=== PATIENT | male | born 1955 | race Caucasian/White ===

== ENCOUNTER 2016-11-09 16:51 | Emergency (ER) | payer OTHER, BC ==
[~2016-11-09] VITALS: Ht 167.6 cm; Wt 115.2 kg
[2016-11-09] MEDS ORDERED: LISINOPRIL20 MG PO (17:03)
[2016-11-09 17:59] LABS: ADD MIUA? NO; BILIRUBIN NEGATIVE; BLOOD NEGATIVE; COLOR YELLOW ((YELLOW)); GLUCOSE (STRIP) NEGATIVE; KETONES NEGATIVE; LEUKOCYTES NEGATIVE; NITRITE NEGATIVE; PROTEIN (STRIP) NEGATIVE; SPECIFIC GRAVITY 1.012 (1.000-1.030); UCUL ADDED? NO; UROBILINOGEN 0.2 MG/DL (0.2-1.0)
[2016-11-09] MEDS ORDERED: VALIUM5 MG PO (19:23)
[2016-11-09] MEDS ORDERED: PERCOCET 5/31 TABLET PO (19:23)
[2016-11-09] MEDS ORDERED: MEDROL DOSEPAK4 MG PO (19:23)
[2016-11-09 19:34] VITALS: BP 142/80
== END 2016-11-09 19:37 | disposition home or self-care (01) ==
LOC: EME 16:51
PROVIDERS: Physician Assistant
DX: M54.42 Lumbago with sciatica, left side (principal); I10 Essential (primary) hypertension
CPT/HCPCS: 81003; 99281; 99284; J2930; J3010

== ENCOUNTER 2016-11-11 00:08 | Inpatient (IN) | payer OTHER, BC ==
[~2016-11-11] VITALS: Ht 175.3 cm; Wt 113.7 kg
[~2016-11-11 00:08] MED LIST: LISINOPRIL20 MG PO; MEDROL DOSEPAK4 MG PO; PERCOCET 5/31 TABLET PO; VALIUM5 MG PO
[2016-11-11 01:08] LABS: HEMATOCRIT 41.6 % (38.0-50.0); MCH 30.2 PG (29.0-34.0); MCHC 34.1 G/DL (30.0-36.0); MCV 88.5 FL (86-99); MEAN PLAT.VOLUME 8.9 uM^3 (9.0-12.4); PLATELET COUNT 185 K/uL (156-360); RBC DIS.WIDTH-CV 12.2 % (11.8-14.6); RBC DIS.WIDTH-SD 39.6 % (39-53); WHITE BLOOD COUNT 11.2 K/uL (4.1-10.2)
[2016-11-11 01:19] LABS: CHLORIDE 103 mEq/L (99-109); POTASSIUM 4.6 mEq/L (3.7-5.4); SODIUM 138 mEq/L (136-147)
[2016-11-11 01:21] LABS: GLUCOSE 127 mg/dL (70-99)
[2016-11-11 01:23] LABS: ANION GAP 9 MEQ/L (2-14); TOTAL BILIRUBIN 0.7 mg/dL (0.0-1.0)
[2016-11-11 01:25] LABS: ALKALINE PHOSPHATASE 71 IU/L (3-129); GFR ESTIMATE (CALCULATED) > 59 mL/min/
[2016-11-11 01:26] LABS: UREA NITROGEN (BUN) 19 mg/dL (9-23)
[2016-11-11 01:29] LABS: LIPASE 461 U/L (1.0-51.0)
[2016-11-11 02:43] LABS: BILIRUBIN NEGATIVE; BLOOD NEGATIVE; COLOR YELLOW ((YELLOW)); GLUCOSE (STRIP) NEGATIVE; KETONES NEGATIVE; LEUKOCYTES NEGATIVE; NITRITE NEGATIVE; PROTEIN (STRIP) NEGATIVE; SPECIFIC GRAVITY 1.019 (1.000-1.030); UROBILINOGEN 0.2 MG/DL (0.2-1.0)
[2016-11-11] MEDS ORDERED: INDOCIN50 MG PO (02:43)
[2016-11-11 02:47] LABS: ADD MIUA? NO; UCUL ADDED? NO
[2016-11-11 04:12] VITALS: BP 122/71
[2016-11-11 08:10] VITALS: BP 136/74
[2016-11-11 13:22] VITALS: BP 125/62
[2016-11-11 15:14] LABS: DIRECT BILIRUBIN 0.1 mg/dL (0.0-0.3); HDL CHOLESTEROL 71 MG/DL (Desirable>=40); LDL CHOLESTEROL 136 mg/dL (Desirable<100); NON-HDL CHOLESTEROL 144 mg/dL (Desirable<160); TOTAL CHOLESTEROL 215 mg/dL (Desirable<200); TRIGLYCERIDES 41 MG/DL (Normal: <150)
[2016-11-11 16:33] VITALS: BP 118/85
[2016-11-11 20:13] VITALS: BP 120/68
[2016-11-11 23:33] VITALS: BP 128/68
[2016-11-12 06:11] LABS: HEMATOCRIT 41.6 % (38.0-50.0); MCH 30.4 PG (29.0-34.0); MCHC 32.7 G/DL (30.0-36.0); MEAN PLAT.VOLUME 9.3 uM^3 (9.0-12.4); PLATELET COUNT 170 K/uL (156-360); RBC DIS.WIDTH-CV 12.6 % (11.8-14.6); RBC DIS.WIDTH-SD 43.3 % (39-53); RED BLOOD COUNT 4.47 M/uL (4.00-5.50)
[2016-11-12 06:13] LABS: MCV 93.1 FL (86-99); WHITE BLOOD COUNT 5.1 K/uL (4.1-10.2)
[2016-11-12 06:41] LABS: ANION GAP 7 MEQ/L (2-14); CHLORIDE 106 MEQ/L (99-109); GFR ESTIMATE (CALCULATED) > 59 mL/min/; LIPASE 34 U/L (1.0-51.0); POTASSIUM 4.8 MEQ/L (3.7-5.4); SAMPLE HEMOLYSIS CHECK 0; SAMPLE ICTERIC CHECK 0; SAMPLE LIPEMIA CHECK 0; SODIUM 144 MEQ/L (136-147); UREA NITROGEN (BUN) 16 mg/dL (9-23)
[2016-11-12 06:43] LABS: GLUCOSE 78 mg/dL (70-99)
[2016-11-12 07:31] LABS: Estimated Average Glucose 114 mg/dL (70-123); HEMOGLOBIN A1c (GLYCOHEMOGLOB) 5.6 % HGB (Below 5.7)
[2016-11-12 08:27] VITALS: BP 149/67
[2016-11-12 16:10] VITALS: BP 139/71
[2016-11-12 23:44] VITALS: BP 115/55
[2016-11-13 08:11] VITALS: BP 127/72
[2016-11-13] MEDS ORDERED: TYLENOL REGULA325 MG PO (11:56)
== END 2016-11-13 13:34 | disposition home or self-care (01) | DRG 552 ==
LOC: EME → EDBD 00:08 → 3EAST 03:08 → EDOF 03:08 → 3EAST 03:08
PROVIDERS: Emergency Medicine; Physician Assistant
DX: M43.06 Spondylolysis, lumbar region (principal); G54.9 Nerve root and plexus disorder, unspecified; T40.2X5A Adverse effect of other opioids, initial encounter; E11.8 Type 2 diabetes mellitus with unspecified complications; N28.1 Cyst of kidney, acquired; M48.06 Spinal stenosis, lumbar region; R10.30 Lower abdominal pain, unspecified; E66.9 Obesity, unspecified; K59.00 Constipation, unspecified; K57.90 Diverticulosis of intestine, part unspecified, without perforation or abscess without bleeding; K76.0 Fatty (change of) liver, not elsewhere classified; M16.0 Bilateral primary osteoarthritis of hip; M10.9 Gout, unspecified; K44.9 Diaphragmatic hernia without obstruction or gangrene; E78.5 Hyperlipidemia, unspecified; G89.29 Other chronic pain
CPT/HCPCS: 72132; 72148; 74177; 74181; 80048; 80053; 80061; 80076; 81003; 82248; 83036; 83605; 83690; 85027; 99281; 99285; J1650; J2270; J2405; J7030; S0028